=== PATIENT | female | born 1985 | race Caucasian/White ===

== ENCOUNTER 2023-05-26 19:26 | Emergency (ER) | payer BC, SELFPAY ==
[2023-05-26] VITALS (12 sets, daily range): BP systolic 120–137; BP diastolic 73–94; PULSE 94–122; RESP 11–20; TEMP 37; O2SAT 98–100
--- NOTE | ~2023-05-26 | CT_ITS ---
EXAMINATION: CTA chest PE protocol DATE: 05/26/2023 21:20 INDICATION: Tachycardia, dyspnea, R calf pain TECHNIQUE: Computed tomography angiography (CTA) of the chest was performed with 100 mL Omnipaque-350 intravenous contrast timed to evaluate the pulmonary arteries. Coronal maximum intensity projection 3D-reconstructions were created by the technologist. The dose-length product (DLP) was 273.70 mGy-cm. Automated exposure control and iterative reconstruction technique were employed. COMPARISON: None. FINDINGS: Lung parenchyma and airways: Clear. Pleura: Unremarkable. Thoracic inlet, axillae and chest wall: Unremarkable. Thoracic aorta: No significant dilation. No dissection. Mediastinum: Normal. Heart and pericardium: Normal. Coronary artery calcifications: Absent. Upper abdomen: No significant finding. Bones: No acute osseous finding. Pulmonary arteries: Study quality: Borderline contrast enhancement due to IV access and phase, study remains diagnostic. No pulmonary emboli detected. IMPRESSION: No CT evidence of acute pulmonary embolus. No acute process detected in the chest. Reviewed, dictated and finalized at location [facility].
--- NOTE | 2023-05-26 19:32 | ECG_ITS ---
Measurements Intervals [place] Rate: 111 P: 59 UT: 189 QRS: 21 QRSD: 92 T: 26 QT: 320 QTc: 435 Interpretive Statements SINUS TACHYCARDIA BASELINE ARTIFACT PRESENT NO PREVIOUS ECG AVAILABLE FOR COMPARISON Electronically Signed On 05-27-2023 13:24:55 CDT by Susan Wynn M.D.
[2023-05-26 19:42] LABS: Basophils Percent Auto 0.6 % (0.2-1.2); Eosinophils Absolute Auto 0.3 K/mm3 (0-0.3); Eosinophils Percent Auto 4.3 % (0-4.4); Hematocrit 37.1 % (37.0-47.0); Hemoglobin 12.4 g/dL (12.0-15.0); Immature Granulocyte Absolute 0.02 K/mm3 (0.00-0.031); Immature Granulocyte Percent A 0.3 % (0-0.5); Lymphocytes Absolute Auto 2.55 K/mm3 (0.9-3.2); Lymphocytes Percent Auto 39.2 % (18.3-44.2); Mean Corpuscular HGB Conc 33.4 g/dl (32-36); Mean Corpuscular Hemoglobin 31.4 pg (26-34); Mean Corpuscular Volume 93.9 fl (80-100); Mean Platelet Volume 11.8 fl (7.4-10.4); Monocytes Absolute Auto 0.5 K/mm3 (0.1-0.6); Monocytes Percent Auto 7.2 % (2.6-8.5); Neutrophils Absolute Auto 3.2 K/mm3 (1.3-6.7); Neutrophils Percent Auto 48.4 % (45.5-73.1); Platelet Count Result 168 k/mm3 (150-375); Red Blood Count 3.95 M/mm3 (4.2-5.4); Red Cell Distribution Width 11.9 % (11.5-14.5); White Blood Count 6.5 K/mm3 (4.5-10.0)
[2023-05-26 19:52] LABS: Alanine Aminotransferase 18 U/L (6-35); Alkaline Phosphatase 58 U/L (38-126); Anion Gap 5 mmol/L (4-12); Aspartate Amino Transferase 20 U/L (14-36); Bilirubin,Total 0.3 mg/dL (0.2-1.3); Blood Urea Nitrogen 12 mg/dL (7-17); Calcium 9.5 mg/dL (8.4-10.2); Carbon Dioxide 28 mmol/L (22-30); Chloride 107 mmol/L (98-107); Estimated CRCL calculation 113 ml/min; Estimated Glomerular Filt Rate > 60; Glucose 102 mg/dL (65-110); Potassium 3.3 mmol/L (3.4-5.0); Sodium 140 mmol/L (137-145)
[2023-05-26 20:46] LABS: Basophils Percent Auto 0.6 % (0.2-1.2); Eosinophils Absolute Auto 0.2 K/mm3 (0-0.3); Eosinophils Percent Auto 2.8 % (0-4.4); Hematocrit 37.5 % (37.0-47.0); Hemoglobin 12.5 g/dL (12.0-15.0); Immature Granulocyte Absolute 0.02 K/mm3 (0.00-0.031); Immature Granulocyte Percent A 0.3 % (0-0.5); Lymphocytes Percent Auto 20.7 % (18.3-44.2); Mean Corpuscular HGB Conc 33.3 g/dl (32-36); Mean Corpuscular Hemoglobin 31.1 pg (26-34); Mean Corpuscular Volume 93.3 fl (80-100); Mean Platelet Volume 11.4 fl (7.4-10.4); Monocytes Absolute Auto 0.6 K/mm3 (0.1-0.6); Monocytes Percent Auto 7.6 % (2.6-8.5); Platelet Count Result 170 k/mm3 (150-375); Red Blood Count 4.02 M/mm3 (4.2-5.4); Red Cell Distribution Width 11.9 % (11.5-14.5); White Blood Count 7.3 K/mm3 (4.5-10.0)
[2023-05-26 20:57] LABS: Alanine Aminotransferase 18 U/L (6-35); Alkaline Phosphatase 60 U/L (38-126); Anion Gap 3 mmol/L (4-12); Aspartate Amino Transferase 19 U/L (14-36); Bilirubin,Total 0.3 mg/dL (0.2-1.3); Blood Urea Nitrogen 12 mg/dL (7-17); Calcium 9.2 mg/dL (8.4-10.2); Carbon Dioxide 28 mmol/L (22-30); Chloride 108 mmol/L (98-107); Estimated CRCL calculation 113 ml/min; Estimated Glomerular Filt Rate > 60; Glucose 112 mg/dL (65-110); Lactic Acid Reflex 1.1 mmol/L (0.7-2.0); Potassium 3.8 mmol/L (3.4-5.0); Sodium 139 mmol/L (137-145)
[2023-05-26] MEDS: ENOXAPARIN 80 MG/0.8 ML SYRINGE 77 MG SUB-Q (20:59)
[2023-05-26 21:01] LABS: Prothrombin Time 13.3 Seconds (11.1-14.7)
[2023-05-26 21:02] LABS: Partial Thromboplastin Time 29.4 Seconds (22.3-36.8)
[2023-05-26 21:04] LABS: Appearance Urine Clear (Clear); Bilirubin Urine Negative (Negative); Blood Urine Negative (Negative); Color Urine Yellow (Yellow); Glucose Urine UA Negative (Negative); Ketones Urine Negative (Negative); Leukocyte Esterase Ur Negative LEU/UL (Negative); Nitrate Urine Negative (Negative); Protein Urine Negative (Negative); Specific Grav Ur 1.007 (1.001-1.035); Urobilinogen Urine 0.2 mg/dL (<2.0)
[2023-05-26 21:05] LABS: NT Pro B Type Natriuretic Pept 20 pg/mL (19.9-100)
[2023-05-26 21:08] LABS: Troponin I < 0.012 ng/mL (0.000-0.034)
[2023-05-26 21:14] LABS: Add Urine Microscopic? NO
[2023-05-26 21:25] LABS: Influenza A QL RT-PCR Negative (Negative); Influenza B QL RT-PCR Negative (Negative); RSV RNA, RT-PCR Negative (Negative); SARS-CoV-2 RNA PCR Negative (Negative)
--- NOTE | 2023-05-26 22:03 | ED.GENADULT ---
HPI - General Adult General Chief complaint: Dizziness Stated complaint: dizzy and light headed Time Seen by Provider: 05/26/23 20:12 History of Present Illness HPI narrative: this is a 37-year-old female presenting ED with chief complaint of lightheadedness. Patient says she was driving her car when all the sudden she became lightheaded, felt like she can not catch her breath and thought that she was going to pass out. Patient notes that over the last several weeks she has also been having more dyspnea on exertion typical and that has been complaining of calf pain for the last 3 days. Patient denies fevers chills chest pain abdominal pain history of blood clots, known cancer recent trauma or immobilization. Related Data Allergies Allergy/AdvReac Type Severity Reaction Status Date / Time No Known Allergies Allergy Verified 05/26/23 19:30 [facility] Past Medical History Medical History IBS (irritable bowel syndrome) Exam Narrative: APPEARANCE: patient appears anxious Head: atraumatic. EYES: EOMI, NOSE: Atraumatic NECK: Trachea midline RESPIRATORY: slightly tachypnic, clear to auscultation CARDIOVASCULAR: tachycardic, Right calf is swollen > Left ABDOMINAL: Non-distended MUSCULOSKELETAl: No obvious deformities NEURO: Alert. Moving 4/4 extremities SKIN:: Warm, dry. Normal color PSYCHIATRIC: anxious Course Vital Signs Vital signs: Vital Signs Temperature 98.6 F 05/26/23 19:24 Pulse Rate 120 H 05/26/23 19:24 Respiratory Rate 11 L 05/26/23 19:24 Blood Pressure 137/94 H 05/26/23 19:24 Pulse Oximetry 98 05/26/23 19:24 Oxygen Delivery Room Air 05/26/23 19:24 Temperature 98.6 F 05/26/23 19:24 Pulse Rate 110 H 05/26/23 22:00 Respiratory Rate 16 05/26/23 22:00 Blood Pressure 122/80 05/26/23 21:05 Pulse Oximetry 98 05/26/23 22:00 Oxygen Delivery Room Air 05/26/23 19:24 Medical Decision Making [facility] Narrative Medical decision making narrative: -Course: 37-year-old female presenting with dizziness, dyspnea and a swollen right calf. High concern for PE and patient was given Lovenox before leaving the ED for CTA. CTA was negative for PE. The rest the patient's workup is unremarkable Including laboratory studies, troponin Bnp and viral swabs. Patient given fluid resuscitation with improvement in heart rate. Still slightly tachycardic @ discharge but there is likely an element of anxiety to her presentation. She is otherwise well-appearing with no respiratory distress or hypoxia. Patient given an appointment for an outpatient DVT scan for evaluation of her right calf swelling. Patient discharged With return precautions -DDX includes but is not limited to: DVT/PE, anxiety, dehydration, dysrhythmia -Co-morbidities complicating care: irritable bowel syndrome -Independent interpretation of studies: CTA negative for PE. Labs reviewed within normal limits Independent EKG interpretation: Rhythm [sinus], Rate [111], [place] -[normal], [place] -[normal], QRS [narrow], QTC [normal], T waves -[negative for concerning inversions], ST Segments - [Negative for concerning elevations] Final interpretations: sinus tachycardia -Interventions: 77mg Lovenox, 2 L Normal saline -Shared decision making / Disposition: discharge with outpatient DVT Vital Signs Vital Signs: Vital Signs Temperature 98.6 F 05/26/23 19:24 Pulse Rate 120 H 05/26/23 19:24 Respiratory Rate 11 L 05/26/23 19:24 Blood Pressure 137/94 H 05/26/23 19:24 Pulse Oximetry 98 05/26/23 19:24 Oxygen Delivery Room Air 05/26/23 19:24 Temperature 98.6 F 05/26/23 19:24 Pulse Rate 110 H 05/26/23 22:00 Respiratory Rate 16 05/26/23 22:00 Blood Pressure 122/80 05/26/23 21:05 Pulse Oximetry 98 05/26/23 22:00 Oxygen Delivery Room Air 05/26/23 19:24 Lab Data 05/26/23 20:40 05/26/23 20:40 Labs: Lab Results
[2023-05-26] MEDS: SODIUM CHLORIDE 0.9% IV 2,000 ML 999 ML IV CONT (22:04)
== END 2023-05-27 00:13 | disposition home or self-care (01) ==
PROVIDERS: Emergency Medicine; Emergency Provider Emergency Medicine
DX: R22.41 Localized swelling, mass and lump, right lower limb (principal); E86.0 Dehydration; Z20.822 Contact with and (suspected) exposure to COVID-19
CPT/HCPCS: 36415; 71275; 80053; 81003; 81025; 83605; 83880; 84484; 85025; 85610; 85730; 87637; 93005; 96360; 96361; 96372; 99284; J1650; J7030; Q9967

== ENCOUNTER 2023-05-27 08:44 | Outpatient (CLI) | payer BC, SELFPAY ==
--- NOTE | ~2023-05-27 | US_ITS ---
US venous doppler [facility] DATE: 05/27/2023 09:38 INDICATION: Right lower extremity pain and swelling TECHNIQUE: Real-time and color flow imaging and Doppler analysis of the veins of both lower extremiti es COMPARISON: None FINDINGS: The greater saphenous veins are patent. There is spontaneous and phasic flow and normal aug mentation and color flow signal and normal compression of the deep veins of both lower extremities. IMPRESSION: No evidence of deep venous thrombosis of the lower extremities Reviewed, dictated and finalized at Location [facility]. Reviewed, dictated and finalized at location A.
== END 2023-05-27 08:45 | disposition home or self-care (01) ==
LOC: ANHIMG 08:45
PROVIDERS: Visit Provider Emergency Medicine
DX: M79.89 Other specified soft tissue disorders (principal)
CPT/HCPCS: 93970